=== PATIENT | male | born 1950 | race Two or more races ===

== ENCOUNTER → 2022-10-11 | Outpatient (CLI) | payer OTHER | LOC: LAB SHORT 18:08 | DX: L72.3 Sebaceous cyst (principal) | CPT/HCPCS: 87070; 87075; 87205 ==

== ENCOUNTER 2023-01-09 12:55 | Day surgery (SDC) | payer OTHER ==
[~2023-01-09] VITALS: Ht 182.9 cm; Wt 109.4 kg
[2023-01-09 15:12] VITALS: BP 152/94
== END 2023-01-09 15:20 | disposition home or self-care (01) ==
LOC: ORSCSDS 12:55
PROVIDERS: Surgery
PROC: 0DBK8ZX Excision of Ascending Colon, Via Natural or Artificial Opening Endoscopic, Diagnostic (ICD-10-PCS; principal; 2023-01-09 14:00)
PROC: 0DBN8ZX Excision of Sigmoid Colon, Via Natural or Artificial Opening Endoscopic, Diagnostic (ICD-10-PCS; principal; 2023-01-09 14:00)
PROC: 0DBH8ZX Excision of Cecum, Via Natural or Artificial Opening Endoscopic, Diagnostic (ICD-10-PCS; principal; 2023-01-09 14:00)
DX: Z12.11 Encounter for screening for malignant neoplasm of colon (principal); D12.0 Benign neoplasm of cecum; D12.2 Benign neoplasm of ascending colon; D12.3 Benign neoplasm of transverse colon; K57.30 Diverticulosis of large intestine without perforation or abscess without bleeding; Z87.891 Personal history of nicotine dependence
CPT/HCPCS: 88305; J2704; J7120